=== PATIENT | female | born 1980 | race Asian ===

== ENCOUNTER 2024-07-15 10:03 | Outpatient (AMB) | payer MEDICAID, SELFPAY ==
[2024-07-15 10:18] VITALS: BP 104/71; PULSE 83; RESP 18; TEMP 36.3; O2SAT 98; BMI 21.6
--- NOTE | 2024-07-15 10:18 | ORTHONT_ITS ---
Vital signs 07/15/24 10:18 Height 1.55 m Height Method Stated Weight 51.88 kg Weight Measurement Method Standing Scale BMI 21.6 BP 104/71 Blood Pressure Source Automatic Cuff Blood Pressure Location Right Upper Arm Position Sitting Respiration 18 Pulse 83 Pulse Source Monitor Temp 97.3 F Temp Source Temporal Artery Scan Pulse Oximetry (%) 98 Oxygen Delivery Method Room Air Med/Allergies Allergies & Medications Allergies No Known Drug Allergies Allergy (Verified 07/15/24 10:20) Medication Reconciliation ibuprofen 800 mg tablet 800 mg PO Q8H 07/15/24 [History Confirmed 07/15/24] meloxicam 7.5 mg tablet 7.5 mg PO QDAY #45 tabs 07/15/24 [Rx] Subjective Visit Visit for: new patient Immunization / Flu Flu Vaccine in the Last 12 Months: No Flu Vaccine Exclusion Criteria: No Exclusion Criteria History of Present Illness Chief complaint: KNEE PAIN Date of injury / onset of symptoms: 1 YEAR OF WORSENING PAIN Patient is a 43-year-old female with left knee pain it has been ongoing for several years. She is still functioning. She has had 1 cortisone injection in the past with minimal relief. She had nonweightbearing x-rays. She has not tried any anti-inflammatories. Pain Pain level (0-10): 7 Pain duration: ALL DAY Pain location: inside (medial) and outside (lateral) Pain quality: sharp Pain timing: night and increases with activity Associated signs & symptoms: numbness Ambulatory data Ambulatory device: none Treatments Number of previous injections: 1 Improvement with previous injections: No Number of Physical Therapy sessions: 3 Improvement with PT: No Improvement with NSAIDS: yes (IBUPROFEN 800MG) Review of Systems Review of Systems: All systems negative unless otherwise noted in HPI. Exam Exam Patient is in no acute distress and is cooperative with the examination today. Breathing is nonlabored. Patient has a normal mood and affect. Bilateral extremities were evaluated and demonstrates sensation intact to light touch. Palpable pedal pulses are present. No significant edema is present. Bilateral hips were examined. The patient has no pain with log roll of the hips. Internal rotation to 30 degrees and external rotation to 30 degrees is painless. Negative FADIR. Right knee was examined today. The right knee is in reasonable alignment. Range of motion from 0-120 degrees. Knee is stable to varus and valgus as well as AP translation with <5mm. Patient has a negative McMurrays. There is no pain with patellofemoral compression and no crepitus noted. The knee is nontender to palpation. Left knee was examined today. The left knee is in [varus] alignment. Range of motion from [0-115] degrees. Knee is stable to varus and valgus as well as AP translation with <5mm. Patient has a [negative] McMurrays. There is [no] pain with patellofemoral compression and [no] crepitus noted. The knee is [tender] to palpation [medially]. Nonweightbearing views of the x-ray demonstrates patellofemoral arthritis of mild to moderate severity Assessment and Plan Problem List (1) Arthritis of left knee: Status: Acute Plan: Patient is a 43-year-old female with a left knee pain and left knee arthritis. We discussed nonoperative options including a home exercise program and anti- inflammatories. We will also obtain a weightbearing x-ray. We will see her in 4 weeks to see how she is doing with this conservative treatment. We can possibly do a cortisone injection at the next visit as well Office Procedures GNS Level of Care Nursing/Assessment Patient Status: Initial/New Patient Nursing Assessment/Reassesment: Medication Reconciliation, Update PMH in EMR and Vital Signs Coordination of Care: Complex Care and Chronic Disease 1-5, Education Complex Pt/Fam, Consent,records obtained, informed consent, Lab and Imaging orders, Results/Orders obtained and Staff clarify orders New Patient Charge New Patient Point Assignment: [id number] New Patient Point Charge: BUILDING DRAFTING OFFICER Level 3 ([id number]) Past Medical History Past Medical History Have you ever been diagnosed with any of the following: Musculoskeletal Problems Arthritis: Yes
== END 2024-07-15 11:19 | disposition home or self-care (01) ==
PROVIDERS: Supervising Provider Orthopaedic Surgery Adult Reconstructive Orthopaedic Surgery; Visit Provider Orthopaedic Surgery Adult Reconstructive Orthopaedic Surgery
DX: M17.12 Unilateral primary osteoarthritis, left knee (principal); M25.562 Pain in left knee
CPT/HCPCS: 99203; G0463

== ENCOUNTER 2024-08-12 15:07 | Outpatient (AMB) | payer MEDICAID, SELFPAY ==
--- NOTE | 2024-08-12 13:02 | PD.ORTHTELE ---
Med/Allergies Allergies & Medications Allergies No Known Drug Allergies Allergy (Verified 08/12/24 13:02) Medication Reconciliation ibuprofen 800 mg tablet 800 mg PO Q8H 07/15/24 [History Confirmed 08/12/24] meloxicam 7.5 mg tablet 7.5 mg PO QDAY #45 tabs 07/15/24 [Rx Confirmed 08/12/24] Subjective Visit Visit for: follow up visit and knee (LEFT) Immunization / Flu Flu Vaccine in the Last 12 Months: No Flu Vaccine Exclusion Criteria: Refused by Patient History of Present Illness Chief complaint: KNEE PAIN Date of injury / onset of symptoms: 1 YEAR OF WORSENING PAIN Patient is a 43-year-old female with left knee pain it has been ongoing for several years. She is still functioning. She has had 1 cortisone injection in the past with minimal relief. She had nonweightbearing x-rays. She has not tried any anti-inflammatories. She has tried meloxicam and it has helped somewhat since we last saw her Pain Pain level (0-10): 7 Pain duration: ALL DAY Pain location: inside (medial) Pain quality: aching Pain timing: increases with activity Associated signs & symptoms: weakness Ambulatory data Ambulatory device: none Treatments Number of previous injections: 1 Improvement with previous injections: No Number of Physical Therapy sessions: 3 Improvement with PT: No Improvement with NSAIDS: no Review of Systems Review of Systems: All systems negative unless otherwise noted in HPI. Assessment and Plan Problem List (1) Arthritis of left knee: Status: Acute Plan: Patient is a 43-year-old female with a left knee pain and left knee arthritis. We discussed nonoperative options including a home exercise program and anti-inflammatories. We will see her back for injections as her xrays demonstrate mild to moderate arthritis Office Procedures GNS Level of Care Nursing/Assessment Patient Status: Established Patient Nursing Assessment/Reassesment: Medication Reconciliation, Update PMH in EMR and Vital Signs Coordination of Care: Complex Care and Chronic Disease 1-5, Education Complex Pt/Fam, Consent,records obtained, informed consent, 1 Ins Authorization, Results/Orders obtained and Staff clarify orders Established Patient Charge Established Patient Point Assignment: 110 Telehealth Telemed Phone/Video with patient at home & Dr,PA,FACTORY MACHINE COMPUTER OPERATOR: Yes
== END 2024-08-12 15:11 | disposition home or self-care (01) ==
LOC: HODSRG 15:07
PROVIDERS: Supervising Provider Orthopaedic Surgery Adult Reconstructive Orthopaedic Surgery; Visit Provider Orthopaedic Surgery Adult Reconstructive Orthopaedic Surgery
DX: M17.12 Unilateral primary osteoarthritis, left knee (principal); M25.562 Pain in left knee
CPT/HCPCS: 99212; G0463

== ENCOUNTER 2024-09-06 09:55 | Outpatient (AMB) | payer MEDICAID, SELFPAY ==
[2024-09-06 09:59] VITALS: BP 113/76; PULSE 99; RESP 18; TEMP 36.6; O2SAT 99; BMI 22.3
--- NOTE | 2024-09-06 09:59 | ORTHONT_ITS ---
Vital signs 09/06/24 09:59 Height 1.55 m Height Method Stated Weight 53.666 kg Weight Measurement Method Standing Scale BMI 22.3 BP 113/76 Blood Pressure Source Automatic Cuff Blood Pressure Location Right Upper Arm Position Sitting Respiration 18 Pulse 99 Pulse Source Monitor Temp 97.8 F Temp Source Temporal Artery Scan Pulse Oximetry (%) 99 Oxygen Delivery Method Room Air Med/Allergies Allergies & Medications Allergies No Known Drug Allergies Allergy (Verified 09/06/24 10:00) Medication Reconciliation ibuprofen 800 mg tablet 800 mg PO Q8H 07/15/24 [History Confirmed 09/06/24] meloxicam 7.5 mg tablet 7.5 mg PO QDAY #45 tabs 07/15/24 [Rx Confirmed 09/06/24] Exam Exam Patient is in no acute distress and is cooperative with the examination today. Breathing is nonlabored. Patient has a normal mood and affect. Bilateral extremities were evaluated and demonstrates sensation intact to light touch. Palpable pedal pulses are present. No significant edema is present. Bilateral hips were examined. The patient has no pain with log roll of the hips. Internal rotation to 30 degrees and external rotation to 30 degrees is painless. Negative FADIR. Right knee was examined today. The right knee is in reasonable alignment. Range of motion from 0-120 degrees. Knee is stable to varus and valgus as well as AP translation with <5mm. Patient has a negative McMurrays. There is no pain with patellofemoral compression and no crepitus noted. The knee is nontender to palpation. Left knee was examined today. The left knee is in [varus] alignment. Range of motion from [0-115] degrees. Knee is stable to varus and valgus as well as AP translation with <5mm. Patient has a [negative] McMurrays. There is [no] pain with patellofemoral compression and [no] crepitus noted. The knee is [tender] to palpation [medially]. Nonweightbearing views of the x-ray demonstrates patellofemoral arthritis of mild to moderate severity Assessment and Plan Problem List (1) Arthritis of left knee: Status: Acute Plan: Patient is a 43-year-old female with a left knee pain and left knee arthritis. We discussed nonoperative options including a home exercise program and anti-inflammatories. Recommend knee cortisone injection as patient would like to proceed with conservative treatment at this time. The risks and benefits of the procedure were reviewed with the patient and patient gave verbal consent to continue with the procedure. Procedure: performed by Dr. Villanueva Using sterile technique the left knee was thoroughly prepped with alcohol, and approximately 1 cc of Kenalog 40 mg/mL and 4 cc of 1% lidocaine was injected without resistance into the medial tibial femoral joint space. The patient tolerated the procedure. Office Procedures GNS Level of Care Nursing/Assessment Patient Status: Established Patient Nursing Assessment/Reassesment: Medication Reconciliation, Update PMH in EMR and Vital Signs Coordination of Care: Complex Care and Chronic Disease 1-5, Education Complex Pt/Fam, Consent,records obtained, informed consent, Results/Orders obtained and Staff clarify orders Established Patient Charge Established Patient Point Assignment: 95 Established Patient Point Charge: EP Level 3 (80-115) Surgical Proc/IM SQ injection Major Surgical Procedure: Yes (LEFT KNEE INJECTION) Medication Given Medication Given Medication Given: Yes Documented Dose Given: 4 Route: Infiitration Medication Given Medication Given Medication Given: Yes Documented Dose Given: 1 Route: Infiitration Office Meds Xylocaine 10 mg/mL (1 %) injection solution Performing Provider: Zhang Villanueva MD Performing Location: [facility] Administered by: Zhang Villanueva MD on 09/06/24 10:22 Dose Route Admin Location Dispensed Lot Number Expiration Date [facility] Operational Assistant 20 mL Infiltration 20 mL [id number] 12/22/27 90494-543-52 [facility] triamcinolone acetonide 40 mg/mL suspension for injection Performing Provider: Zhang Villanueva MD Performing Location: [facility] Administered by: Zhang Villanueva MD on 09/06/24 10:22 Dose Route Admin Location Dispensed Lot Number Expiration Date [facility] Operational Assistant 40 mg intra-articular left knee 1 mL [id number] 01/20/26 9899-4267-99 [employer] [place] Intake Visit Data Collection New Patient or Established: Established Patient (seen at [facility] within 3 years) Reason for Visit:: F/U ON KNEE PAIN Seen by Clinical Staff ONLY (RN/MA): No Verbal consent obtained for Telemed visit?: No Technical Rep Required: No PCP or OBGYN visit in last 3 months: Yes Hx Now: No Do You Feel Safe at Home: Yes Authorities Contacted: N/A Questionairres Past Medical History Past Medical History Have you ever been diagnosed with any of the following: Musculoskeletal Problems Arthritis: Yes Subjective Visit Visit for: follow up visit and knee Immunization / Flu Flu Vaccine in the Last 12 Months: No Flu Vaccine Exclusion Criteria: No Exclusion Criteria History of Present Illness Chief complaint: F/U KNEE PAIN 43-year-old female With Left knee pain. She was told she needed a knee replace ment. Her x-rays demonstrated mild arthritis. We will try injections and nonoperative treatment first. Pain Pain level (0-10): 7 Pain duration: CONSTANT Pain location: inside (medial) and outside (lateral) Pain quality: sharp Ambulatory data Ambulatory device: none Treatments Improvement with previous injections: No Improvement with PT: No Improvement with NSAIDS: no Review of Systems Review of Systems: All systems negative unless otherwise noted in HPI.
== END 2024-09-06 10:26 | disposition home or self-care (01) ==
LOC: HODSRG 09:55
PROVIDERS: Supervising Provider Orthopaedic Surgery Adult Reconstructive Orthopaedic Surgery; Visit Provider Orthopaedic Surgery Adult Reconstructive Orthopaedic Surgery
DX: M17.12 Unilateral primary osteoarthritis, left knee (principal); M25.562 Pain in left knee
CPT/HCPCS: 20610; 99213; J3301; J3490; G0463

== ENCOUNTER 2024-10-06 11:24 | Outpatient (AMB) | payer MEDICAID, SELFPAY ==
--- NOTE | 2024-10-06 11:21 | PD.ORTHTELE ---
Med/Allergies Allergies & Medications Allergies No Known Drug Allergies Allergy (Verified 10/06/24 11:22) Medication Reconciliation meloxicam 7.5 mg tablet 7.5 mg PO QDAY #45 tabs 07/15/24 [Rx Confirmed 10/06/24] Subjective Visit Visit for: follow up visit, knee (LEFT) and injections Immunization / Flu Flu Vaccine in the Last 12 Months: No Flu Vaccine Exclusion Criteria: Refused by Patient History of Present Illness Chief complaint: KNEE PAIN Date of injury / onset of symptoms: 1 YEAR OF WORSENING PAIN Patient is a 43-year-old female with left knee pain it has been ongoing for several years. She is still functioning. She has had 1 cortisone injection in the past with minimal relief. She only had about 10 days of relief with the last injection Pain Pain level (0-10): 7 Pain duration: ON AND OFF Pain location: inside (medial) and anterior Pain quality: sharp and aching Pain timing: night, increases with activity and stairs Associated signs & symptoms: none Ambulatory data Ambulatory device: none Treatments Number of previous injections: 1 Improvement with previous injections: No Number of Physical Therapy sessions: 3 Improvement with PT: No Improvement with NSAIDS: no Review of Systems Review of Systems: All systems negative unless otherwise noted in HPI. Assessment and Plan Problem List (1) Arthritis of left knee: Status: Acute Plan: Patient is a 43-year-old female with a left knee pain and left knee arthritis. We discussed nonoperative options including a home exercise program and anti-inflammatories. Given that she is failed conservative treatment, we will order an MRI to get more information. I do suspect that she could have a meniscal tear. Her main issue is her primary pain rather than mechanical symptoms Office Procedures GNS Level of Care Nursing/Assessment Patient Status: Established Patient Nursing Assessment/Reassesment: Medication Reconciliation, Update PMH in EMR and Vital Signs Coordination of Care: Complex Care and Chronic Disease 1-5, Education Complex Pt/Fam, Consent,records obtained, informed consent, Results/Orders obtained and Staff clarify orders Established Patient Charge Established Patient Point Assignment: 95 Telehealth Telemed Phone/Video with patient at home & Dr,PA,DAY LIGHT RELIEF OPERATOR: Yes
== END 2024-10-06 11:46 | disposition home or self-care (01) ==
LOC: HODSRG 11:24
PROVIDERS: Supervising Provider Orthopaedic Surgery Adult Reconstructive Orthopaedic Surgery; Visit Provider Orthopaedic Surgery Adult Reconstructive Orthopaedic Surgery
DX: M17.12 Unilateral primary osteoarthritis, left knee (principal); M25.562 Pain in left knee
CPT/HCPCS: 99212; G0463

== ENCOUNTER → 2024-11-23 | Outpatient (CLI) | payer MEDICAID, SELFPAY ==
--- NOTE | 2024-11-23 08:30 | XR_ITS ---
Exam: MRI knee without contrast, left complete Date and time of exam: November 23, 2024 0847 hours INDICATIONS: Anterior knee pain beginning 10 years ago Technique: Multiple axial, coronal, and sagittal sections on the knee have been obtained. T2-Weighted sagittal, fat-suppressed images, TR 3,500, TE 62, T2 weighted coronal fat-saturated images, TR 3,500, TE 62 Proton density sagittal sections, TR 1800, TE 31. T-1 weighted coronal images, TR 524, TE 13.0 Findings: Medial meniscus anterior horn intact. Medial meniscus, body is intact. Posterior horn medial meniscus intact. Lateral meniscus anterior horn is intact Lateral meniscus, body is intact Posterior horn lateral meniscus is intact Anterior cruciate ligament moderately attenuated. Posterior cruciate ligament appears intact. Knee effusion is small. Quadriceps and patellar tendons appear intact. There is no evidence of tendinosis. Inflammatory change or fracture of Hoffa's fat pad is not seen. Medial patellar facet demonstrates severe thinning. Lateral patellar facet cartilage demonstrates severe thinning. Trochlear cartilage demonstrates severe thinning. Marrow signal adequate. Medial collateral ligament appears intact. No meniscocapsular separation is seen. Illiotibial band and fibular collateral ligament are intact. Biceps femoris tendons appear intact. Medial femoral condylar articular cartilage demonstrates moderate thinning. Lateral femoral condylar articular cartilage demonstratesmild thinning. Tibial plateau cartilage demonstrates moderate medial thinning. Impression: Moderate attenuation anterior cruciate ligament Severe thinning cartilage patellofemoral joint
== END | disposition home or self-care (01) ==
LOC: SMRI 08:33
PROVIDERS: Referring Provider Orthopaedic Surgery Adult Reconstructive Orthopaedic Surgery; Visit Provider Orthopaedic Surgery Adult Reconstructive Orthopaedic Surgery
DX: M25.862 Other specified joint disorders, left knee (principal)
CPT/HCPCS: 73721

== ENCOUNTER 2024-12-05 14:12 | Outpatient (AMB) | payer MEDICAID, SELFPAY ==
[2024-12-05 14:23] VITALS: BP 117/79; PULSE 82; RESP 18; TEMP 36.8; O2SAT 90; BMI 21.7
--- NOTE | 2024-12-05 14:23 | ORTHONT_ITS ---
Vital signs 12/05/24 14:23 Height 1.55 m Height Method Stated Weight 52.191 kg Weight Measurement Method Standing Scale BMI 21.7 BP 117/79 Blood Pressure Source Automatic Cuff Blood Pressure Location Left Upper Arm Position Sitting Respiration 18 Pulse 82 Pulse Source Monitor Temp 98.2 F Temp Source Temporal Artery Scan Pulse Oximetry (%) 90 L Oxygen Delivery Method Room Air Med/Allergies Allergies & Medications Allergies No Known Drug Allergies Allergy (Verified 12/05/24 14:24) Medication Reconciliation meloxicam 7.5 mg tablet 7.5 mg PO QDAY #45 tabs 07/15/24 [Rx Confirmed 12/05/24] Exam Exam Patient is in no acute distress and is cooperative with the examination today. Breathing is nonlabored. Patient has a normal mood and affect. Bilateral extremities were evaluated and demonstrates sensation intact to light touch. Palpable pedal pulses are present. No significant edema is present. Bilateral hips were examined. The patient has no pain with log roll of the hips. Internal rotation to 30 degrees and external rotation to 30 degrees is painless. Negative FADIR. Right knee was examined today. The right knee is in reasonable alignment. Range of motion from 0-120 degrees. Knee is stable to varus and valgus as well as AP translation with <5mm. Patient has a negative McMurrays. There is no pain with patellofemoral compression and no crepitus noted. The knee is nontender to palpation. Left knee was examined today. The left knee is in [varus] alignment. Range of motion from [0-115] degrees. Knee is stable to varus and valgus as well as AP translation with <5mm. Patient has a [negative] McMurrays. There is [no] pain with patellofemoral compression and [no] crepitus noted. The knee is [tender] to palpation [medially]. Nonweightbearing views of the x-ray demonstrates patellofemoral arthritis of mild to moderate severity Assessment and Plan Problem List (1) Arthritis of left knee: Status: Acute Plan: Patient is a 43-year-old female with a left knee pain and left knee arthritis. We discussed nonoperative options including a home exercise program and anti- inflammatories. We reviewed an MRI which demonstrates moderate patellofemoral arthritis. We discussed nonoperative options for this including anti-inflammatories and physical therapy.She will see us on an as-needed basis and will do home exercises and anti-inflammatories Office Procedures GNS Level of Care Nursing/Assessment Patient Status: Established Patient Nursing Assessment/Reassesment: Medication Reconciliation, Update PMH in EMR and Vital Signs Coordination of Care: Complex Care and Chronic Disease 1-5, Education Complex Pt/Fam, Consent,records obtained, informed consent, Results/Orders obtained and Staff clarify orders Established Patient Charge Established Patient Point Assignment: 95 Established Patient Point Charge: EP Level 3 (80-115) MA Intake Visit Data Collection New Patient or Established: Established Patient (seen at [facility] within 3 years) Reason for Visit:: MRI RESULTS Seen by Clinical Staff ONLY (RN/MA): No Energy Conservation Director Required: No PCP or OBGYN visit in last 3 months: Yes Hx Now: No Do You Feel Safe at Home: Yes Authorities Contacted: N/A Questionairres Past Medical History Past Medical History Have you ever been diagnosed with any of the following: Respiratory Problems Smoking: No Smoking Exposure: No Musculoskeletal Problems Arthritis: Yes Subjective Visit Visit for: follow up visit, knee and MRI (RESULTS) Immunization / Flu Flu Vaccine in the Last 12 Months: No Flu Vaccine Exclusion Criteria: No Exclusion Criteria History of Present Illness Chief complaint: F/U KNEE PAIN 43-year-old female With Left knee pain. She was told she needed a knee replacement. Her x-rays demonstrated mild arthritis. We will try injections and nonoperative treatment first. She is here for MRI follow-up today. The MRI demonstrates patellofemoral arthritis of moderate severity Pain Pain level (0-10): 6 Pain duration: ON AND OFF Pain location: anterior Pain quality: dull Pain timing: increases with activity Ambulatory data Ambulatory device: none Treatments Improvement with previous injections: No Improvement with PT: No Improvement with NSAIDS: no Review of Systems Review of Systems: All systems negative unless otherwise noted in HPI.
== END 2024-12-05 14:47 | disposition home or self-care (01) ==
LOC: HODSRG 14:12
PROVIDERS: Supervising Provider Orthopaedic Surgery Adult Reconstructive Orthopaedic Surgery; Visit Provider Orthopaedic Surgery Adult Reconstructive Orthopaedic Surgery
DX: M17.12 Unilateral primary osteoarthritis, left knee (principal); M25.562 Pain in left knee
CPT/HCPCS: 99213; G0463